=== PATIENT | female | born 1985 | race Caucasian/White ===

== ENCOUNTER 2016-09-06 21:10 | Emergency (ER) | payer OTHER ==
[2016-09-06 21:25] VITALS: BP 127/85; PULSE 92; RESP 20; TEMP 95.1
[2016-09-06] MEDS ORDERED: AUGMENTIN(FRIDGE) 400 MG/5 ML PO ONE (21:55)
[2016-09-06] MEDS ORDERED: KETOROLAC TROMETHAMINE 30 MG/ML SOL IM ONE (21:56)
[2016-09-06] MEDS ORDERED: KETOROLAC TROMETHAMINE 30 MG/ML SOL ONE (21:59)
[2016-09-06] MEDS ORDERED: AMOXIL/CLAVULANATE 400/5 ML PDR ONE (22:07)
== END 2016-09-06 22:30 | disposition home or self-care (01) | DRG 159 ==
LOC: ED 21:10
DX: K08.89 Other specified disorders of teeth and supporting structures (principal)
CPT/HCPCS: 96372; 99282; 99283; J1885